=== PATIENT | female | born 1980 ===

== ENCOUNTER 2025-07-19 09:00 | Day surgery (SDC) | payer OTHER ==
[2025-07-10 12:55] VITALS: BP 115/75
[~2025-07-19] VITALS: Ht 167.6 cm; Wt 81.6 kg
[2025-07-19] MEDS ORDERED: CEFAZOLIN SODIUM 1,000 MG VIAL ONE (09:56)
[2025-07-19] MEDS ORDERED: LIDOCAINE HCL 1%/EPINEPHRINE 20ML VIAL IJ ONE (11:19)
[2025-07-19] MEDS ORDERED: EPINEPHRINE HCL/PF 1 MG/ML AMPUL ONE (11:19)
[2025-07-19] MEDS ORDERED: POVIDONE-IODINE 118 ML BOTT TOP ONE (11:26)
[2025-07-19] MEDS ORDERED: CEPHALEXIN500 M1 PO (13:24)
== END 2025-07-19 15:35 | disposition home or self-care (01) ==
LOC: CIR.AMB 09:00
PROVIDERS: ATTEND Otolaryngology Otology & Neurotology
DX: H80.92 Unspecified otosclerosis, left ear (principal); H90.A12 Conductive hearing loss, unilateral, left ear with restricted hearing on the contralateral side; Z88.8 Allergy status to other drugs, medicaments and biological substances